=== PATIENT | female | born 1965 | race Caucasian/White ===

== ENCOUNTER 2018-06-20 15:15 | Inpatient (IN) | payer BC ==
[~2018-06-20] VITALS: Ht 167.6 cm; Wt 68.0 kg
[2018-06-20 15:36] VITALS: BP_SYST 148
[2018-06-20] MEDS ORDERED: NACL 0.9% 1,000 ML IV ONE (16:00)
[2018-06-20] MEDS ORDERED: KETOROLAC TROMETHAMINE 15 MG VIAL IVP ONE (16:00)
[2018-06-20] MEDS ORDERED: ONDANSETRON HCL 4 MG/2 ML VIAL IVP ONE (16:15)
[2018-06-20 16:59] LABS: CALCIUM 9.7 mg/dL (8.4-11.0); CREATININE 0.87 mg/dL (0.55-1.30); POTASSIUM 4.5 mmol/L (3.5-5.1)
[2018-06-20] MEDS ORDERED: fentaNYL CITRATE/PF 100 MCG/2 ML AMP IVP ONE (17:00)
[2018-06-20 17:03] LABS: TOTAL BILIRUBIN 0.4 mg/dL (0.0-1.0)
[2018-06-20 17:10] LABS: BASOPHILS # (AUTO) 0.1 K/uL (0.0-0.2); BASOPHILS % (AUTO) 0.8 % (0.0-2.0); EOSINOPHILS # (AUTO) 0.1 K/uL (0.0-0.4); EOSINOPHILS % (AUTO) 1.8 % (0.0-4.0); HEMATOCRIT 45.4 % (36-48); HEMOGLOBIN 14.5 g/dL (12.0-16.0); LYMPHOCYTES % (AUTO) 11.9 % (20.5-51.5); MEAN CORPUSCULAR HEMOGLOBIN 29 pg (27-31); MEAN CORPUSCULAR HGB CONC 32 % (32-36); MEAN CORPUSCULAR VOLUME 92 fL (79.0-98.0); MONOCYTES # (AUTO) 0.2 K/uL (0.0-1.0); MONOCYTES % (AUTO) 2.6 % (1.7-9.3); NEUTROPHILS # (AUTO) 6.8 K/uL (1.8-7.7); NEUTROPHILS % (AUTO) 82.9 % (40.0-70.0); PLATELET COUNT (AUTO) 356 K/uL (130-430); RED BLOOD CELL COUNT(AUTO) 4.95 MIL/uL (4.2-6.2); RED CELL DISTRIBUTION WIDTH 12.6 % (9.0-15.0); WHITE BLOOD COUNT (AUTO) 8.2 K/uL (4.8-10.8)
[2018-06-20] MEDS ORDERED: METOCLOPRAMIDE HCL 10 MG/2 ML VIAL IVP PRN (17:45)
[2018-06-20] MEDS ORDERED: MORPHINE 2 MG/ML INJ. SYRINGE IVP PRN (17:45)
[2018-06-20] MEDS ORDERED: ACETAMINOPHEN 325 MG TABLET PO PRN (17:45)
[2018-06-20] MEDS ORDERED: OXYB5TAB11 PO (17:50)
[2018-06-20] MEDS ORDERED: GABA-531 PO (17:50)
[2018-06-20] MEDS ORDERED: IBUP-1971 PO (17:50)
[2018-06-20] MEDS ORDERED: BUPR300T55 PO (17:50)
[2018-06-20] MEDS ORDERED: ZOLP10TA2 PO (17:50)
[2018-06-20] MEDS ORDERED: DULO60CA41 PO (17:50)
[2018-06-20 18:46] VITALS: BP_SYST 154
[2018-06-20] MEDS: MORPHINE 4 MG/ML INJ. SYRINGE IVP PRN (18:50)
[2018-06-20 19:00] VITALS: BP_SYST 154
[2018-06-20 19:20] VITALS: BP_SYST 128
[2018-06-20] MEDS: GABAPENTIN 300 MG CAPSULE PO SCH (20:04)
[2018-06-20] MEDS: ONDANSETRON HCL 4 MG/2 ML VIAL IVP PRN (20:04)
[2018-06-20] MEDS: ZOLPIDEM TARTRATE 5 MG TABLET PO SCH (20:12)
[2018-06-21 01:11] VITALS: BP_SYST 104
[2018-06-21] MEDS: D5NS 1,000 ML IV SCH ×4 (03:09→18:20)
[2018-06-21] MEDS: MORPHINE 4 MG/ML INJ. SYRINGE IVP PRN ×4 (03:09→23:46)
[2018-06-21 07:39] VITALS: BP_SYST 124
[2018-06-21] MEDS: GABAPENTIN 300 MG CAPSULE PO SCH ×2 (08:17→20:38)
[2018-06-21] MEDS: DULoxetine HCL 30 MG CAPSULE.DR (CYMBALTA) PO SCH (09:42)
[2018-06-21] MEDS: OXYBUTYNIN CHLORIDE 5 MG TABLET PO SCH ×2 (09:42→20:38)
[2018-06-21] MEDS: buPROPion HCL 150 MG XL TAB PO SCH (09:42)
[2018-06-21 12:04] VITALS: BP_SYST 148
[2018-06-21] MEDS ORDERED: GASTROGRAFIN 120 ML ONE (14:31)
[2018-06-21] MEDS: ONDANSETRON HCL 4 MG/2 ML VIAL IVP PRN (18:24)
[2018-06-21 20:00] VITALS: BP_SYST 126
[2018-06-21] MEDS: ZOLPIDEM TARTRATE 5 MG TABLET PO SCH (20:38)
[2018-06-21 23:55] VITALS: BP_SYST 120
[2018-06-22] MEDS: D5NS 1,000 ML IV SCH ×2 (01:42→08:55)
[2018-06-22] MEDS: MORPHINE 4 MG/ML INJ. SYRINGE IVP PRN (03:55)
[2018-06-22] MEDS: ONDANSETRON HCL 4 MG/2 ML VIAL IVP PRN (08:47)
[2018-06-22] MEDS: buPROPion HCL 150 MG XL TAB PO SCH (08:48)
[2018-06-22] MEDS: OXYBUTYNIN CHLORIDE 5 MG TABLET PO SCH (08:48)
[2018-06-22] MEDS: GABAPENTIN 300 MG CAPSULE PO SCH (08:48)
[2018-06-22] MEDS: DULoxetine HCL 30 MG CAPSULE.DR (CYMBALTA) PO SCH (08:49)
[2018-06-22 09:04] VITALS: BP_SYST 140
[2018-06-22 11:29] VITALS: BP_SYST 134
[2018-06-22 14:35] VITALS: BP_SYST 134
[2018-06-22 15:36] VITALS: BP_SYST 143
== END 2018-06-22 15:40 | disposition home or self-care (01) | DRG 390 ==
LOC: SED 15:15 → SMU 17:39
PROVIDERS: ADMIT Internal Medicine Hospice and Palliative Medicine; ATTEND Internal Medicine Hospice and Palliative Medicine
DX: K56.600 Partial intestinal obstruction, unspecified as to cause (principal); J45.909 Unspecified asthma, uncomplicated; M79.7 Fibromyalgia; Z88.2 Allergy status to sulfonamides; Z88.8 Allergy status to other drugs, medicaments and biological substances; Z90.710 Acquired absence of both cervix and uterus; Z87.891 Personal history of nicotine dependence
CPT/HCPCS: 36415; 74250-TC; 80053; 83690-TC; 85025; 96361; 96374; 96375; 99285; J1885; J2270; J2405; J3010; J7042; Q9963

== ENCOUNTER 2018-07-31 17:52 | Inpatient (IN) | payer BC ==
[~2018-07-31] VITALS: Ht 167.6 cm; Wt 73.5 kg
[~2018-07-31 17:52] MED LIST: BUPR300T55 PO; DULO60CA41 PO; GABA-531 PO; IBUP-1971 PO; OXYB5TAB11 PO; ZOLP10TA2 PO
[2018-07-31 18:03] VITALS: BP_SYST 129
[2018-07-31] MEDS ORDERED: NACL 0.9% 1,000 ML IV ONE (18:13)
[2018-07-31] MEDS ORDERED: ONDANSETRON HCL 4 MG/2 ML VIAL IVP ONE (18:15)
[2018-07-31] MEDS ORDERED: MORPHINE 4 MG/ML INJ. SYRINGE IVP ONE (18:15)
[2018-07-31 19:04] LABS: POTASSIUM 4.2 mmol/L (3.5-5.1); PROTHROMBIN TIME 10.3 SECS (9.5-12.5); TOTAL BILIRUBIN 0.5 mg/dL (0.0-1.0)
[2018-07-31 19:06] LABS: BASOPHILS # (AUTO) 0.1 K/uL (0.0-0.2); BASOPHILS % (AUTO) 0.8 % (0.0-2.0); EOSINOPHILS # (AUTO) 0.1 K/uL (0.0-0.4); EOSINOPHILS % (AUTO) 1.1 % (0.0-4.0); HEMATOCRIT 46.4 % (36-48); HEMOGLOBIN 15.7 g/dL (12.0-16.0); LYMPHOCYTES # (AUTO) 1.3 K/uL (1.0-5.5); LYMPHOCYTES % (AUTO) 13.4 % (20.5-51.5); MEAN CORPUSCULAR HEMOGLOBIN 30 pg (27-31); MEAN CORPUSCULAR HGB CONC 34 % (32-36); MEAN CORPUSCULAR VOLUME 90 fL (79.0-98.0); MONOCYTES # (AUTO) 0.3 K/uL (0.0-1.0); MONOCYTES % (AUTO) 3.1 % (1.7-9.3); NEUTROPHILS # (AUTO) 8.1 K/uL (1.8-7.7); NEUTROPHILS % (AUTO) 81.6 % (40.0-70.0); PLATELET COUNT (AUTO) 393 K/uL (130-430); RED BLOOD CELL COUNT(AUTO) 5.16 MIL/uL (4.2-6.2); RED CELL DISTRIBUTION WIDTH 12.1 % (9.0-15.0); WHITE BLOOD COUNT (AUTO) 9.9 K/uL (4.8-10.8)
[2018-07-31 19:24] LABS: ALBUMIN 4.5 g/dL (3.4-4.8); CALCIUM 10.3 mg/dL (8.4-11.0); CREATININE 0.94 mg/dL (0.55-1.30)
[2018-07-31 19:42] LABS: BILIRUBIN,URINE NEGATIVE (NEGATIVE); BLOOD, URINE NEGATIVE (NEGATIVE); CLARITY/URINE CLEAR (CLEAR); COLOR,URINE YELLOW (YELLOW); GLUCOSE,URINE NEGATIVE (NEGATIVE); KETONES,URINE 1+ (NEGATIVE); LEUKOCYTE ESTERASE ,URINE TRACE (NEGATIVE); NITRITE, URINE NEGATIVE (NEGATIVE); PROTEIN URINE NEGATIVE (NEGATIVE); UROBILINOGEN,URINE 0.2 (0.2-1.0)
[2018-07-31] MEDS ORDERED: CYCL-10 PO (20:38)
[2018-07-31] MEDS ORDERED: METO-290 PO (20:38)
[2018-07-31 20:41] LABS: RBC,URINE 0-3 /HPF (0-3)
[2018-07-31 20:42] LABS: BACTERIA,URINE MODERATE /HPF (None Seen); MUCUS,URINE None Seen /LPF (None Seen); URINE AMORPHOUS PHOSPHATES 1+ /HPF (None Seen); YEAST,URINE None Seen /HPF (None Seen)
[2018-07-31 22:11] VITALS: BP_SYST 118
[2018-07-31] MEDS ORDERED: ONDANSETRON HCL 4 MG/2 ML VIAL IVP PRN (22:30)
[2018-07-31] MEDS ORDERED: ZOLPIDEM TARTRATE 5 MG TABLET PO ONE (23:15)
[2018-07-31] MEDS ORDERED: cefTRIAXone 1 GM IVPB PREMIX 50 ML IV ONE (23:19)
[2018-07-31] MEDS: D5LR 1,000 ML IV SCH (23:27)
[2018-07-31] MEDS ORDERED: GABAPENTIN 300 MG CAPSULE PO SCH (23:30)
[2018-07-31] MEDS ORDERED: ZOLPIDEM TARTRATE 5 MG TABLET PO SCH (23:30)
[2018-07-31] MEDS ORDERED: GABAPENTIN 300 MG CAPSULE PO ONE (23:30)
[2018-07-31] MEDS: cefTRIAXone 1 GM in D5W 50 ML IV SCH (23:30)
[2018-07-31] MEDS ORDERED: OXYBUTYNIN CHLORIDE 5 MG TABLET PO ONE (23:30)
[2018-07-31] MEDS: MORPHINE 4 MG/ML INJ. SYRINGE IVP PRN (23:37)
[2018-08-01 00:41] VITALS: BP_SYST 133
[2018-08-01 07:51] LABS: CALCIUM 8.3 mg/dL (8.4-11.0); CREATININE 0.72 mg/dL (0.55-1.30)
[2018-08-01 07:56] LABS: BASOPHILS % (AUTO) 0.3 % (0.0-2.0); EOSINOPHILS # (AUTO) 0.1 K/uL (0.0-0.4); EOSINOPHILS % (AUTO) 2.4 % (0.0-4.0); HEMATOCRIT 34.8 % (36-48); HEMOGLOBIN 11.9 g/dL (12.0-16.0); LYMPHOCYTES # (AUTO) 1.4 K/uL (1.0-5.5); LYMPHOCYTES % (AUTO) 27.6 % (20.5-51.5); MEAN CORPUSCULAR HEMOGLOBIN 31 pg (27-31); MEAN CORPUSCULAR HGB CONC 34 % (32-36); MEAN CORPUSCULAR VOLUME 90 fL (79.0-98.0); MONOCYTES # (AUTO) 0.4 K/uL (0.0-1.0); MONOCYTES % (AUTO) 8.3 % (1.7-9.3); NEUTROPHILS # (AUTO) 3.1 K/uL (1.8-7.7); NEUTROPHILS % (AUTO) 61.4 % (40.0-70.0); PLATELET COUNT (AUTO) 248 K/uL (130-430); RED BLOOD CELL COUNT(AUTO) 3.86 MIL/uL (4.2-6.2); RED CELL DISTRIBUTION WIDTH 11.9 % (9.0-15.0)
[2018-08-01] MEDS: MORPHINE 4 MG/ML INJ. SYRINGE IVP PRN ×3 (08:42→20:08)
[2018-08-01] MEDS: GABAPENTIN 300 MG CAPSULE PO SCH ×2 (08:52→20:11)
[2018-08-01] MEDS: OXYBUTYNIN CHLORIDE 5 MG TABLET PO SCH ×2 (08:52→20:12)
[2018-08-01 08:56] VITALS: BP_SYST 149
[2018-08-01] MEDS: D5LR 1,000 ML IV SCH ×3 (09:00→22:25)
[2018-08-01] MEDS ORDERED: DIATR MEGLU/DIATRIZ SOD 30 ML SOLUTION PO ONE (09:16)
[2018-08-01 12:15] VITALS: BP_SYST 150
[2018-08-01 16:39] VITALS: BP_SYST 131
[2018-08-01 20:00] VITALS: BP_SYST 126
[2018-08-01] MEDS ORDERED: ZOLPIDEM TARTRATE 5 MG TABLET PO SCH (21:00)
[2018-08-01] MEDS: cefTRIAXone 1 GM in D5W 50 ML IV SCH (22:20)
[2018-08-02 00:34] VITALS: BP_SYST 90
[2018-08-02] MEDS: MORPHINE 4 MG/ML INJ. SYRINGE IVP PRN ×2 (03:47→16:53)
[2018-08-02 07:35] LABS: CALCIUM 8.9 mg/dL (8.4-11.0); CREATININE 0.82 mg/dL (0.55-1.30); POTASSIUM 3.8 mmol/L (3.5-5.1)
[2018-08-02 07:44] LABS: BASOPHILS % (AUTO) 0.2 % (0.0-2.0); EOSINOPHILS # (AUTO) 0.2 K/uL (0.0-0.4); EOSINOPHILS % (AUTO) 3.8 % (0.0-4.0); HEMATOCRIT 39.5 % (36-48); HEMOGLOBIN 12.9 g/dL (12.0-16.0); LYMPHOCYTES # (AUTO) 1.6 K/uL (1.0-5.5); LYMPHOCYTES % (AUTO) 34.6 % (20.5-51.5); MEAN CORPUSCULAR HEMOGLOBIN 30 pg (27-31); MEAN CORPUSCULAR HGB CONC 33 % (32-36); MEAN CORPUSCULAR VOLUME 92 fL (79.0-98.0); MONOCYTES # (AUTO) 0.3 K/uL (0.0-1.0); MONOCYTES % (AUTO) 7.4 % (1.7-9.3); NEUTROPHILS # (AUTO) 2.4 K/uL (1.8-7.7); PLATELET COUNT (AUTO) 294 K/uL (130-430); WHITE BLOOD COUNT (AUTO) 4.5 K/uL (4.8-10.8)
[2018-08-02 08:00] VITALS: BP_SYST 134
[2018-08-02] MEDS: GABAPENTIN 300 MG CAPSULE PO SCH (08:45)
[2018-08-02] MEDS: OXYBUTYNIN CHLORIDE 5 MG TABLET PO SCH (08:45)
[2018-08-02] MEDS ORDERED: DULoxetine HCL 30 MG CAPSULE.DR (CYMBALTA) PO SCH (09:00)
[2018-08-02] MEDS ORDERED: buPROPion HCL 150 MG XL TAB PO ONE (09:15)
[2018-08-02 12:44] VITALS: BP_SYST 134
[2018-08-02] MEDS: D5LR 1,000 ML IV SCH (15:34)
[2018-08-02 16:46] VITALS: BP_SYST 136
[2018-08-02 18:14] VITALS: BP_SYST 133
[2018-08-03] MEDS ORDERED: buPROPion HCL 150 MG XL TAB PO SCH (09:00)
== END 2018-08-02 18:46 | disposition home or self-care (01) | DRG 390 ==
LOC: SED 17:52 → STU 21:47 → SMU 21:53
PROVIDERS: ADMIT Internal Medicine; ATTEND Internal Medicine
DX: K56.600 Partial intestinal obstruction, unspecified as to cause (principal); J45.909 Unspecified asthma, uncomplicated; F17.210 Nicotine dependence, cigarettes, uncomplicated; M79.7 Fibromyalgia; F32.9 Major depressive disorder, single episode, unspecified; Z88.2 Allergy status to sulfonamides; Z88.1 Allergy status to other antibiotic agents; Z79.899 Other long term (current) drug therapy; Z90.710 Acquired absence of both cervix and uterus; Z90.49 Acquired absence of other specified parts of digestive tract
CPT/HCPCS: 36415; 71045; 74018; 74250-TC; 80048; 80053; 81000-TC; 82150-TC; 82550-TC; 83605; 83690-TC; 85025; 85610-TC; 85730-TC; 87040-TC; 87086; 93005; 96361; 96374; 96375; 99285; J0696; J2270; J2405; J7030; J7060; J7120; Q9964